=== PATIENT | male | born 2000 | race African-American/Black ===

== ENCOUNTER 2020-01-30 15:57 | Emergency (ER) | payer OTHER ==
[2020-01-30 16:04] VITALS: BP 129/76
[2020-01-30] MEDS ORDERED: IBUPROFEN 600 MG TABLET PO ONE (16:15)
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
== END 2020-01-30 16:27 | disposition home or self-care (01) ==
LOC: ER 15:57
DX: R51.9 Headache, unspecified (principal); M54.6 Pain in thoracic spine; M25.512 Pain in left shoulder; M25.511 Pain in right shoulder; V43.52XA Car driver injured in collision with other type car in traffic accident, initial encounter; Y92.410 Unspecified street and highway as the place of occurrence of the external cause
CPT/HCPCS: 99283